=== PATIENT | male | born 2000 | race Caucasian/White ===

== ENCOUNTER 2022-10-18 22:25 | Day surgery (SDC) | payer SELFPAY ==
[~2022-10-18] VITALS: Ht 175.3 cm; Wt 63.4 kg
[2022-10-18 23:44] LABS: BASO % 0.2 % (0.0-1.0); EOS % 0.1 % (0.0-3.0); HEMATOCRIT 43.5 % (42.0-52.0); LYMPH # 1.1 10^3/uL (1.5-5.0); LYMPH % 6.3 % (24.0-44.0); MEAN CORPUSCULAR HEMOGLOBIN 29.6 pg (27.0-33.0); MEAN CORPUSCULAR HGB CONC 34.5 g/dl (32.0-36.5); MONO % 10.6 % (2.0-8.0); NEUTROPHILS # 14.5 10^3/uL (1.5-8.5); NEUTROPHILS % 82.5 % (36.0-66.0); PLATELET COUNT, AUTOMATED 251 10^3/uL (150-450); RED BLOOD COUNT 5.06 10^6/uL (4.30-6.10); WHITE BLOOD COUNT 17.6 10^3/uL (4.0-10.0)
[2022-10-19] LABS: MONO # 1.9 10^3/uL (0.0-0.8)
[2022-10-19 00:18] LABS: RSV AMPLIFICATION NEGATIVE (NEGATIVE)
[2022-10-19] MEDS ORDERED: ISOVUE-370 76% 100ML VIAL As Ordered ONE (00:34)
[2022-10-19 00:54] LABS: LIPASE 25 U/L (12-53)
[2022-10-19 00:56] LABS: AMYLASE 52 U/L (30-118)
[2022-10-19 00:58] LABS: ALBUMIN 4.1 G/DL (3.2-5.2); ALKALINE PHOSPHATASE 75 U/L (46-116); ALT/SGPT 23 U/L (7.0-40); AST/SGOT 10 U/L (<34); BILIRUBIN,DIRECT 0.5 MG/DL (<0.4); BILIRUBIN,TOTAL 2.8 MG/DL (0.3-1.2); BLOOD UREA NITROGEN 14 MG/DL (9-23); CALCIUM LEVEL 9.6 MG/DL (8.5-10.1); CARBON DIOXIDE LEVEL 25 MMOL/L (20-31); CHLORIDE LEVEL 104 MMOL/L (98-107); CREATININE FOR GFR 0.72 MG/DL (0.70-1.30); GLUCOSE, FASTING 100 MG/DL (60-100); POTASSIUM SERUM 3.7 MMOL/L (3.5-5.1); SODIUM LEVEL 136 MMOL/L (136-145)
[2022-10-19] MEDS ORDERED: PIPERACILLIN/TAZOBACTAM SOD 4.5 GM in D5W MINI-BAG PLUS 50 ML IV ONE (04:45)
[2022-10-19] MEDS ORDERED: NS 1,000 ML IV ONE (04:50)
[2022-10-19 06:18] LABS: BASO # 0.1 10^3/uL (0.0-0.2); BASO % 0.3 % (0.0-1.0); EOS # 0.1 10^3/uL (0.0-0.5); EOS % 0.8 % (0.0-3.0); HEMATOCRIT 41.4 % (42.0-52.0); HEMOGLOBIN 14.2 g/dl (13.5-17.5); LYMPH # 1.7 10^3/uL (1.5-5.0); LYMPH % 11.5 % (24.0-44.0); MEAN CORPUSCULAR HEMOGLOBIN 29.7 pg (27.0-33.0); MEAN CORPUSCULAR HGB CONC 34.3 g/dl (32.0-36.5); MEAN CORPUSCULAR VOLUME 86.6 fl (80.0-96.0); MONO % 10.9 % (2.0-8.0); NEUTROPHILS # 11.4 10^3/uL (1.5-8.5); PLATELET COUNT, AUTOMATED 224 10^3/uL (150-450); RED BLOOD COUNT 4.78 10^6/uL (4.30-6.10)
[2022-10-19 06:41] LABS: MONO # 1.6 10^3/uL (0.0-0.8)
[2022-10-19 06:42] LABS: LIPASE 22 U/L (12-53)
[2022-10-19 06:59] LABS: ALBUMIN 3.5 G/DL (3.2-5.2); ALKALINE PHOSPHATASE 66 U/L (46-116); ALT/SGPT 19 U/L (7.0-40); AST/SGOT 12 U/L (<34); BILIRUBIN,TOTAL 3.9 MG/DL (0.3-1.2); BLOOD UREA NITROGEN 11 MG/DL (9-23); CALCIUM LEVEL 7.9 MG/DL (8.5-10.1); CARBON DIOXIDE LEVEL 25 MMOL/L (20-31); CHLORIDE LEVEL 106 MMOL/L (98-107); CREATININE FOR GFR 0.81 MG/DL (0.70-1.30); GLUCOSE, FASTING 93 MG/DL (60-100); POTASSIUM SERUM 3.7 MMOL/L (3.5-5.1); SODIUM LEVEL 137 MMOL/L (136-145); TOTAL PROTEIN 6.1 G/DL (5.7-8.2)
[2022-10-19] MEDS ORDERED: MED REC IN PROGRESS XX SCH (09:15)
[2022-10-19] MEDS ORDERED: HOME MED LIST COMPLETE! XX SCH (09:25)
[2022-10-19] MEDS ORDERED: PIPERACILLIN/TAZOBACTAM SOD 3.375 GM in D5W MINI-BAG PLUS 50 ML IV SCH (13:00)
[2022-10-19] MEDS ORDERED: LIDOCAINE 1% SDV 30ML VIAL As Ordered ONE (14:25)
[2022-10-19] MEDS ORDERED: ROCURONIUM BROMIDE 50MG/5ML VIAL As Ordered ONE (14:28)
[2022-10-19] MEDS ORDERED: propofoL 200 MG/20 ML VIAL As Ordered ONE (14:28)
[2022-10-19] MEDS ORDERED: LIDOCAINE 2% 100MG/5ML SDV (FOR ANES.) As Ordered ONE (14:28)
[2022-10-19] MEDS ORDERED: MIDAZOLAM INJ 2MG/2ML VIAL As Ordered ONE (14:28)
[2022-10-19] MEDS ORDERED: fentaNYL 100 MCG/2 ML INJECTION As Ordered ONE (14:29)
[2022-10-19] MEDS ORDERED: ONDANSETRON 4MG 2ML VIAL As Ordered ONE (14:52)
[2022-10-19] MEDS ORDERED: KETOROLAC 60MG 2ML VIAL As Ordered ONE (15:19)
[2022-10-19] MEDS ORDERED: SUGAMMADEX SODIUM 500 MG/5 ML VIAL (BRIDION) As Ordered ONE (15:19)
[2022-10-19] MEDS ORDERED: AUGM500T34 PO (15:42)
[2022-10-19] MEDS ORDERED: OXYC1TAB23 PO (15:43)
[2022-10-19 16:15] VITALS: BP 110/63; TEMP 98.8; O2SAT 97
[2022-10-19 16:45] VITALS: BP 111/63; TEMP 98.6; O2SAT 95
[2022-10-19 17:15] VITALS: BP 114/63; TEMP 98.8; O2SAT 96
== END 2022-10-19 18:45 | disposition home or self-care (01) ==
LOC: M ED 22:25 → M SDC 10-19 08:27 → ENRESERV 10-19 10:51 → M MSPAV 10-19 16:45 → M SDC 10-19 18:45
PROVIDERS: ATTEND Surgery
DX: K35.890 Other acute appendicitis without perforation or gangrene (principal)
CPT/HCPCS: 44970; 74177; 80048; 80053; 80076; 81001; 82150; 83605; 83690; 85025; 87631; 88304; 93041; 96365; 96366; 96375; 99285; J1100; J1885; J2250; J2405; J2543; J3010; Q9967; S0020